=== PATIENT | female | born 1990 | race Caucasian/White ===

== ENCOUNTER 2017-01-15 14:18 | Inpatient (IN) | payer BC ==
[2017-01-15] MEDS ORDERED: Methylergonovine 0.2 MG/1 ML Amp IM PRN (15:29)
[2017-01-15] MEDS ORDERED: Carboprost Tromethamine 250 MCG/1 ML Amp IM PRN (15:29)
[2017-01-15] MEDS ORDERED: Nalbuphine 10 MG/1 ML Vial IVPUSH PRN (15:29)
[2017-01-15] MEDS ORDERED: Butorphanol 1 MG/ML SDV IVPUSH PRN (15:29)
[2017-01-15] MEDS ORDERED: Lidocaine 1% 50 ML MDV INJECT PRN (15:29)
[2017-01-15] MEDS ORDERED: Misoprostol 200 MCG Tab PO PRN (15:29)
[2017-01-15] MEDS ORDERED: Sodium Chloride 0.9% 10 ML Syringe FLUSH PRN (15:29)
[2017-01-15] MEDS ORDERED: Water For Irrigation,Sterile 1,000 ML Container IRR PRN (15:29)
[2017-01-15] MEDS ORDERED: Sodium Chloride 0.9% 2.5 ML Syringe FLUSH PRN (15:29)
[2017-01-15] MEDS ORDERED: Oxytocin/0.9 % Sodium Chloride 30 UNIT/500 ML BAG IV SCH ×2 (15:30→18:00)
[2017-01-15] MEDS: Lactated Ringers 1,000 ML IV SCH ×3 (17:05→21:51)
[2017-01-15] MEDS ORDERED: Misoprostol 25 MCG (1/4 of 100 MCG) Tab VAG PRN (17:54)
[2017-01-15] MEDS ORDERED: Terbutaline 1 MG/ML SDV SUBCUT PRN (17:54)
[2017-01-15] MEDS ORDERED: Misoprostol 25 MCG (1/4 of 100 MCG) Tab VAG SCH (18:00)
--- NOTE | 2017-01-15 20:42 | PCM.PREANE ---
Preanesthetic Assessment - Anesthesia/Transfusion/Family Hx Anesthesia History: Prior Anesthesia Without Reaction - Review of Systems General: No Symptoms Pulmonary: No Symptoms Cardiovascular: No Symptoms Gastrointestinal: No Symptoms Neurological: No Symptoms Other: Reports: None - Physical Assessment Height: 5 ft 4 in Weight: 77.111 kg ASA Class: 2 Mental Status: Alert & Oriented x3 Airway Class: Mallampati = 2 Dentition: Reports: Normal Dentition Thyro-Mental Finger Breadths: 3 Mouth Opening Finger Breadths: 3 ROM/Head Extension: Full Lungs: Clear to Auscultation, Normal Respiratory Effort Cardiovascular: Regular Rate, Regular Rhythm - Lab Values: Laboratory Last Values WBC 9.39 K/uL (4.0-11.0) 01/15/17 15:39 RBC 4.35 M/uL (4.30-5.90) 01/15/17 15:39 Hgb 11.2 g/dL (12.0-16.0) L 01/15/17 15:39 Hct 35.7 % (36.0-46.0) L 01/15/17 15:39 MCV 82.1 fL (80.0-98.0) 01/15/17 15:39 MCH 25.7 pg (27.0-32.0) L 01/15/17 15:39 MCHC 31.4 g/dL (31.0-37.0) 01/15/17 15:39 RDW Std Deviation 51.3 fl (28.0-62.0) 01/15/17 15:39 RDW Coeff of Magdy 17 % (11.0-15.0) H 01/15/17 15:39 Plt Count 188 K/uL (150-400) 01/15/17 15:39 MPV 10.60 fL (7.40-12.00) 01/15/17 15:39 Nucleated RBC % 0.0 /100WBC 01/15/17 15:39 Nucleated RBCs # 0 K/uL 01/15/17 15:39 Membrane Rupture POSITIVE 01/15/17 14:43 Blood Type O NEGATIVE 01/15/17 15:39 Antibody Screen NEGATIVE 01/15/17 15:39 - Allergies Allergies/Adverse Reactions: Allergies Allergy/AdvReac Type Severity Reaction Status Date / Time No Known Allergies Allergy Verified 03/20/14 11:15 - Acknowledgements Anesthesia Type Planned: Epidural Pt an Appropriate Candidate for the Planned Anesthesia: Yes Alternatives and Risks of Anesthesia Discussed w Pt/Guardian: Yes Pt/Guardian Understands and Agrees with Anesthesia Plan: Yes PreAnesthesia Questionnaire HEENT History: Reports: None Cardiovascular History: Reports: None Respiratory History: Reports: None Gastrointestinal History: Reports: GERD Genitourinary History: Reports: None 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 History: Reports: , Other (See Below) : 4 Para: 2 LMP (Approximate): Other OB/BYN History: ovarian cyst removed Musculoskeletal History: Reports: None Neurological History: Reports: None Psychiatric History: Reports: None Endocrine/Metabolic History: Reports: None Hematologic History: Reports: None Immunologic History: Reports: None Oncologic (Cancer) History: Reports: None Dermatologic History: Reports: None - Infectious Disease History Infectious Disease History: Reports: None - Past Surgical History Female Surgical History: Reports: D&C, Other (See Below) (Laparoscopy and cystectomy) - SUBSTANCE USE Smoking Status *Q: Former Smoker Tobacco Use Within Last Twelve Months: Cigarettes Second Hand Smoke Exposure: No Recreational Drug Use History: No - CURRENT (IN HOUSE) MEDS Current Meds: Current Medications Butorphanol Tartrate (Stadol) 1 mg IVPUSH Q1H PRN PRN Reason: Pain Carboprost Tromethamine (Hemabate Ds) 250 mcg IM ASDIRECTED PRN PRN Reason: Post Hemorrhage Lactated Ringer's (Ringers, Lactated) 1,000 mls @ 150 mls/hr IV ASDIRECTED RUDY Last Admin: 01/15/17 20:24 Dose: 999 mls/hr Oxytocin/Sodium Chloride (Oxytocin 30 Unit/500 Ml-Ns) 30 unit in 500 mls @ 999 mls/hr IV TITRATE RUDY Oxytocin/Sodium Chloride (Oxytocin 30 Unit/500 Ml-Ns) 30 unit in 500 mls @ 2 mls/hr IV TITRATE RUDY; 2 MUNITS/MIN PRN Reason: Protocol Last Titration: 01/15/17 19:09 Dose: 8 munits/min, 8 mls/hr Lidocaine HCl (Xylocaine 1%) 50 ml INJECT .ONCE PRN PRN Reason: Laceration repair Methylergonovine Maleate (Methergine) 0.2 mg IM ASDIRECTED PRN PRN Reason: Post Hemorrhage Misoprostol (Cytotec) 200 mcg PO .ONCE PRN PRN Reason: Post Hemorrhage Misoprostol (Cytotec) 25 mcg VAG .ONCE RUDY Misoprostol (Cytotec) 25 mcg VAG Q4H PRN PRN Reason: Cervical Ripening Nalbuphine HCl (Nubain) 10 mg IVPUSH Q1H PRN PRN Reason: Pain (severe 7-10) Sodium Chloride (Saline Flush) 10 ml FLUSH ASDIRECTED PRN PRN Reason: Keep Vein Open Sodium Chloride (Saline Flush) 2.5 ml FLUSH ASDIRECTED PRN PRN Reason: Keep Vein Open Sterile Water (Sterile Water For Irrigation) 1,000 ml IRR ASDIRECTED PRN PRN Reason: delivery Terbutaline Sulfate (Brethine) 0.25 mg SUBCUT ASDIRECTED PRN PRN Reason: Tacysystole
[2017-01-15] MEDS ORDERED: fentaNYL 100 MCG/2 ML SDV ONE (21:16)
[2017-01-15] MEDS ORDERED: Ropivacaine HCl/PF 100 ML ONE (21:16)
[2017-01-15] MEDS ORDERED: Bupivacaine 0.5% 10 ML SDV ONE (22:11)
[2017-01-16] MEDS ORDERED: Benzocaine/Menthol 20%-0.5% Spray 78 GM Cannister TOP PRN (00:45)
[2017-01-16] MEDS ORDERED: Methylergonovine 0.2 MG/1 ML Amp IM PRN (00:45)
[2017-01-16] MEDS ORDERED: Witch Hazel Medicated Pads 40/Jar TOP PRN (00:45)
[2017-01-16] MEDS ORDERED: Acetaminophen 500 MG Tab PO PRN (00:45)
[2017-01-16] MEDS ORDERED: Ibuprofen 400 MG Tab PO PRN (00:45)
[2017-01-16] MEDS ORDERED: Bisacodyl 10 MG Supp RECTAL PRN (00:45)
[2017-01-16] MEDS ORDERED: Lanolin 100% Cream 7 GM Tube TOP PRN (00:45)
[2017-01-16] MEDS ORDERED: oxyCODONE 5 MG Tab PO PRN (00:45)
[2017-01-16] MEDS: Ibuprofen 800 MG Tab PO PRN ×4 (02:30→22:08)
--- NOTE | 2017-01-16 06:57 | PCM48HPAN ---
Post Anesthesia Note - EVALUATION WITHIN 48HRS OF ANESTHETIC Vital Signs in Normal Range: Yes Patient Participated in Evaluation: Yes Respiratory Function Stable: Yes Airway Patent: Yes Cardiovascular Function Stable: Yes Hydration Status Stable: Yes Pain Control Satisfactory: Yes Nausea and Vomiting Control Satisfactory: Yes Mental Status Recovered: Yes
[2017-01-16] MEDS: Docusate Sodium 100 MG Cap PO PRN (08:21)
--- NOTE | 2017-01-16 08:33 | PCM.PNPP ---
<Shey Whitten - Last Filed: 01/16/17 08:29> - General Info Date of Service: 01/16/17 Functional Status: Reports: Pain Controlled, Tolerating Diet, Ambulating. Denies: Urinating (straight cath this morning) - Review of Systems General: Denies: Fever, Weakness, Fatigue Pulmonary: Denies: Shortness of Breath, Pleuritic Chest Pain, Cough Cardiovascular: Denies: Chest Pain, Palpitations, Dyspnea on Exertion Genitourinary: Denies: Dysuria - General Info Date of Service: 01/16/17 - Patient Data Vital Signs - Most Recent: Last Vital Signs Temp 36.8 C 01/16/17 03:30 Pulse 96 01/16/17 03:30 Resp 18 01/16/17 03:30 BP 129/70 01/16/17 03:30 Pulse Ox 100 01/16/17 03:30 Weight - Most Recent: 77.111 kg I&O - Last 24 Hours: Intake & Output 01/15/17 01/16/17 01/16/17 22:59 06:59 14:59 Intake Total 1000 1500 Balance 1000 1500 Lab Results - Last 24 Hours: Laboratory Results - last 24 hr 01/15/17 01/15/17 01/15/17 Range/Units 14:43 15:39 15:39 WBC 9.39 (4.0-11.0) K/uL RBC 4.35 (4.30-5.90) M/uL Hgb 11.2 L (12.0-16.0) g/dL Hct 35.7 L (36.0-46.0) % MCV 82.1 (80.0-98.0) fL MCH 25.7 L (27.0-32.0) pg MCHC 31.4 (31.0-37.0) g/dL RDW Std Deviation 51.3 (28.0-62.0) fl RDW Coeff of Magdy 17 H (11.0-15.0) % Plt Count 188 (150-400) K/uL MPV 10.60 (7.40-12.00) fL Nucleated RBC % 0.0 /100WBC Nucleated RBCs # 0 K/uL Membrane Rupture POSITIVE Blood Type O NEGATIVE Antibody Screen NEGATIVE Med Orders - Current: Current Medications Acetaminophen (Tylenol Extra Strength) 500 mg PO Q4H PRN PRN Reason: Pain Acetaminophen (Tylenol Extra Strength) 1,000 mg PO Q4H PRN PRN Reason: Pain Benzocaine/Menthol (Dermoplast Pain Relief 20%-0.5% [place]) 78 gm TOP ASDIRECTED PRN PRN Reason: Perineal Comfort Measure Last Admin: 01/16/17 02:29 Dose: 1 canister Bisacodyl (Dulcolax) 10 mg RECTAL .ONCE PRN PRN Reason: Constipation Docusate Sodium (Colace) 100 mg PO BID PRN PRN Reason: Constipation Last Admin: 01/16/17 08:21 Dose: 100 mg Emollient Ointment (Lansinoh Hpa) 0 gm TOP ASDIRECTED PRN PRN Reason: Sore Nipples Ibuprofen (Motrin) 400 mg PO Q4H PRN PRN Reason: Pain Ibuprofen (Motrin) 800 mg PO Q6H PRN PRN Reason: Pain Last Admin: 01/16/17 08:20 Dose: 800 mg Methylergonovine Maleate (Methergine) 0.2 mg IM .ONCE PRN PRN Reason: Excessive Vaginal Bleeding Oxycodone HCl (Oxycodone) 5 mg PO Q2H PRN PRN Reason: Pain Witch Estela (Tucks) 1 pad TOP ASDIRECTED PRN PRN Reason: comfort care Last Admin: 01/16/17 02:30 Dose: 1 tub Discontinued Medications Bupivacaine HCl (Sensorcaine-Mpf 0.5%) Confirm Administered Dose 10 ml .ROUTE .STK-MED ONE Stop: 01/15/17 22:12 Butorphanol Tartrate (Stadol) 1 mg IVPUSH Q1H PRN PRN Reason: Pain Carboprost Tromethamine (Hemabate Ds) 250 mcg IM ASDIRECTED PRN PRN Reason: Post Hemorrhage Fentanyl (Sublimaze) Confirm Administered Dose 100 mcg .ROUTE .STK-MED ONE Stop: 01/15/17 21:17 Lactated Ringer's (Ringers, Lactated) 1,000 mls @ 150 mls/hr IV ASDIRECTED RUDY Last Admin: 01/15/17 21:51 Dose: 999 mls/hr Oxytocin/Sodium Chloride (Oxytocin 30 Unit/500 Ml-Ns) 30 unit in 500 mls @ 999 mls/hr IV TITRATE RUDY Oxytocin/Sodium Chloride (Oxytocin 30 Unit/500 Ml-Ns) 30 unit in 500 mls @ 2 mls/hr IV TITRATE RUDY; 2 MUNITS/MIN PRN Reason: Protocol Last Titration: 01/15/17 23:46 Dose: 999 mls/hr Ropivacaine (Naropin 0.2%) Confirm Administered Dose 100 mls @ as directed .ROUTE .[facility]-MED ONE Stop: 01/15/17 21:17 Lidocaine HCl (Xylocaine 1%) 50 ml INJECT .ONCE PRN PRN Reason: Laceration repair Methylergonovine Maleate (Methergine) 0.2 mg IM ASDIRECTED PRN PRN Reason: Post Hemorrhage Misoprostol (Cytotec) 200 mcg PO .ONCE PRN PRN Reason: Post Hemorrhage Misoprostol (Cytotec) 25 mcg VAG .ONCE RUDY Misoprostol (Cytotec) 25 mcg VAG Q4H PRN PRN Reason: Cervical Ripening Nalbuphine HCl (Nubain) 10 mg IVPUSH Q1H PRN PRN Reason: Pain (severe 7-10) Sodium Chloride (Saline Flush) 10 ml FLUSH ASDIRECTED PRN PRN Reason: Keep Vein Open Sodium Chloride (Saline Flush) 2.5 ml FLUSH ASDIRECTED PRN PRN Reason: Keep Vein Open Sterile Water (Sterile Water For Irrigation) 1,000 ml IRR ASDIRECTED PRN PRN Reason: delivery Last Admin: 01/15/17 23:40 Dose: 1,000 ml Terbutaline Sulfate (Brethine) 0.25 mg SUBCUT ASDIRECTED PRN PRN Reason: Tacysystole - Interaction Infant Disposition, : [place] in Room with Family Interaction: Holding Infant Feeding: Bottle Fed Infant Support Person: - Recovery Exam Fundal Tone: Firm Fundal Level: 3 Fingerbreadths Above Umbilicus Fundal Placement: Midline Lochia Amount: Scant, Small Lochia Color: Rubra/Red Perineum Description: Edematous Episiotomy/Laceration: Approximated Bladder Status: Voiding Urinary Elimination: Straight Catheterization - Exam General: Alert, Oriented Lungs: Clear to Auscultation, Normal Respiratory Effort Cardiovascular: Regular Rate, Regular Rhythm GI/Abdominal Exam: Normal Bowel Sounds, Soft, Non-Tender, No Organomegaly, No Abnormal Bruit, No Mass, Pelvis Stable Extremities: Normal Inspection, Normal Range of Motion, Non-Tender, Normal Capillary Refill, Pedal Edema (trace) - Problem List & Annotations (1) Vaginal delivery SNOMED Code(s): 331226956 Code(s): O80 - ENCOUNTER FOR FULL-TERM UNCOMPLICATED DELIVERY Status: Acute Current Visit: Yes - Problem List Review Problem List Initiated/Reviewed/Updated: Yes - Assessment Assessment:: PPD #1 from . Minimal pain and lochia. Patient was unable to void this morning and was straight catheterized. If unable to void, will reinsert lisa. Anticiapte discharge home tomorrow. - Plan Plan:: Continue routine post- cares. Encourage patient to shower and ambulate halls today. <Malinda Flores - Last Filed: 01/16/17 10:01> - Patient Data Vital Signs - Most Recent: Last Vital Signs Temp 36.8 C 01/16/17 03:30 Pulse 96 01/16/17 03:30 Resp 18 01/16/17 03:30 BP 129/70 01/16/17 03:30 Pulse Ox 100 01/16/17 03:30 I&O - Last 24 Hours: Intake & Output 01/15/17 01/16/17 01/16/17 22:59 06:59 14:59 Intake Total 1000 1500 Balance 1000 1500 Lab Results - Last 24 Hours: Laboratory Results - last 24 hr 01/15/17 01/15/17 01/15/17 Range/Units 14:43 15:39 15:39 WBC 9.39 (4.0-11.0) K/uL RBC 4.35 (4.30-5.90) M/uL Hgb 11.2 L (12.0-16.0) g/dL Hct 35.7 L (36.0-46.0) % MCV 82.1 (80.0-98.0) fL MCH 25.7 L (27.0-32.0) pg MCHC 31.4 (31.0-37.0) g/dL RDW Std Deviation 51.3 (28.0-62.0) fl RDW Coeff of Magdy 17 H (11.0-15.0) % Plt Count 188 (150-400) K/uL MPV 10.60 (7.40-12.00) fL Nucleated RBC % 0.0 /100WBC Nucleated RBCs # 0 K/uL Membrane Rupture POSITIVE Blood Type O NEGATIVE Antibody Screen NEGATIVE Med Orders - Current: Current Medications Acetaminophen (Tylenol Extra Strength) 500 mg PO Q4H PRN PRN Reason: Pain Acetaminophen (Tylenol Extra Strength) 1,000 mg PO Q4H PRN PRN Reason: Pain Benzocaine/Menthol (Dermoplast Pain Relief 20%-0.5% [place]) 78 gm TOP ASDIRECTED PRN PRN Reason: Perineal Comfort Measure Last Admin: 01/16/17 02:29 Dose: 1 canister Bisacodyl (Dulcolax) 10 mg RECTAL .ONCE PRN PRN Reason: Constipation Docusate Sodium (Colace) 100 mg PO BID PRN PRN Reason: Constipation Last Admin: 01/16/17 08:21 Dose: 100 mg Emollient Ointment (Lansinoh Hpa) 0 gm TOP ASDIRECTED PRN PRN Reason: Sore Nipples Ibuprofen (Motrin) 400 mg PO Q4H PRN PRN Reason: Pain Ibuprofen (Motrin) 800 mg PO Q6H PRN PRN Reason: Pain Last Admin: 01/16/17 08:20 Dose: 800 mg Methylergonovine Maleate (Methergine) 0.2 mg IM .ONCE PRN PRN Reason: Excessive Vaginal Bleeding Oxycodone HCl (Oxycodone) 5 mg PO Q2H PRN PRN Reason: Pain Witch Estela (Tucks) 1 pad TOP ASDIRECTED PRN PRN Reason: comfort care Last Admin: 01/16/17 02:30 Dose: 1 tub Discontinued Medications Bupivacaine HCl (Sensorcaine-Mpf 0.5%) Confirm Administered Dose 10 ml .ROUTE .STK-MED ONE Stop: 01/15/17 22:12 Butorphanol Tartrate (Stadol) 1 mg IVPUSH Q1H PRN PRN Reason: Pain Carboprost Tromethamine (Hemabate Ds) 250 mcg IM ASDIRECTED PRN PRN Reason: Post Hemorrhage Fentanyl (Sublimaze) Confirm Administered Dose 100 mcg .ROUTE .STK-MED ONE Stop: 01/15/17 21:17 Lactated Ringer's (Ringers, Lactated) 1,000 mls @ 150 mls/hr IV ASDIRECTED RUDY Last Admin: 01/15/17 21:51 Dose: 999 mls/hr Oxytocin/Sodium Chloride (Oxytocin 30 Unit/500 Ml-Ns) 30 unit in 500 mls @ 999 mls/hr IV TITRATE RUDY Oxytocin/Sodium Chloride (Oxytocin 30 Unit/500 Ml-Ns) 30 unit in 500 mls @ 2 mls/hr IV TITRATE RUDY; 2 MUNITS/MIN PRN Reason: Protocol Last Titration: 01/15/17 23:46 Dose: 999 mls/hr Ropivacaine (Naropin 0.2%) Confirm Administered Dose 100 mls @ as directed .ROUTE .[facility]-MED ONE Stop: 01/15/17 21:17 Lidocaine HCl (Xylocaine 1%) 50 ml INJECT .ONCE PRN PRN Reason: Laceration repair Methylergonovine Maleate (Methergine) 0.2 mg IM ASDIRECTED PRN PRN Reason: Post Hemorrhage Misoprostol (Cytotec) 200 mcg PO .ONCE PRN PRN Reason: Post Hemorrhage Misoprostol (Cytotec) 25 mcg VAG .ONCE RUDY Misoprostol (Cytotec) 25 mcg VAG Q4H PRN PRN Reason: Cervical Ripening Nalbuphine HCl (Nubain) 10 mg IVPUSH Q1H PRN PRN Reason: Pain (severe 7-10) Sodium Chloride (Saline Flush) 10 ml FLUSH ASDIRECTED PRN PRN Reason: Keep Vein Open Sodium Chloride (Saline Flush) 2.5 ml FLUSH ASDIRECTED PRN PRN Reason: Keep Vein Open Sterile Water (Sterile Water For Irrigation) 1,000 ml IRR ASDIRECTED PRN PRN Reason: delivery Last Admin: 01/15/17 23:40 Dose: 1,000 ml Terbutaline Sulfate (Brethine) 0.25 mg SUBCUT ASDIRECTED PRN PRN Reason: Tacysystole - My Orders Last 24 Hours: My Active Orders 01/15/17 14:43 Non Stress Test [RC] PER UNIT ROUTINE Up ad Veronica [RC] ASDIRECTED Vaginal Exam [RC] Click to Edit Vital Signs [RC] PER UNIT ROUTINE - Plan Plan:: Patient seen and examined--agree with above.
--- NOTE | 2017-01-16 10:52 | OR ---
SURGEON: Vinita Subramanian M.D. DATE OF PROCEDURE: 01/15/2017 PREOPERATIVE DIAGNOSIS: 39 and 3/7 week intrauterine , rupture of membranes with induction and delivery. POSTOPERATIVE DIAGNOSIS: 39 and 3/7 week intrauterine , rupture of membranes with induction and delivery. ANESTHESIA: Epidural. ESTIMATED BLOOD LOSS: Less than 200 mL. FINDINGS: Liveborn male, scores 9 and 9, weighing 3590 g. Placenta spontaneous, Schultze intact with 3 vessels, with a markedly short cord. COMPLICATIONS: None known. DISPOSITION: Stable to recovery. BRIEF HISTORY: This is a 26-year-old female. She is -0-1-2. She presents at 39 and 3/7 weeks' gestation. Spontaneous rupture of membranes at approximately 1100 hours. She had category 1 heart tones. She presented to Labor and Delivery. She was initially 3 cm dilated and fairly thick. Over a 2-hour time period, she had minimal change, although she was having regular contractions. Therefore, Pitocin augmentation was initiated after consent of the patient. She did receive an epidural for pain control. She continued to have category 1 heart tones throughout labor. She progressed to complete. DESCRIPTION OF PROCEDURE: With the patient in dorsolithotomy position, the patient pushed over 20 minutes time period to a 5+ station, at which time the head was delivered spontaneously and atraumatically over the perineum with support, with subsequent delivery of the infant's shoulders and body without any difficulty. The infant was bulb suctioned by nose and mouth, and the cord was noted to be quite short, it was doubly clamped and cut, and the infant was handed to the mother in the presence of the nurse attending delivery. The was a liveborn male, scores 9 and 9, weighing 3590 g. Cord blood was collected for cord ABGs, as well as routine cord blood sampling. Pitocin was initiated after delivery of the infant to assist with delivery of the placenta, which was delivered spontaneously, Schultze intact with 3 vessels. Upon inspection of the pelvis and perineum, there were no periurethral, vaginal sidewall, cervical, or rectal lacerations. There was a small second-degree perineal laceration that was repaired using a running lock suture of 2-0 Caprosyn for the vaginal mucosa, a deep running suture of the same for the perineum and a subcuticular suture of the same for the skin. Final sponge, needle, and instrument counts were correct. There were no known complications. Mother and are in LDRP, in good condition. CK ROSA /[id number]
[2017-01-16] MEDS: Acetaminophen 500 MG Tab PO PRN (12:50)
[2017-01-17] MEDS: Acetaminophen 500 MG Tab PO PRN (03:04)
--- NOTE | 2017-01-17 09:04 | PCM.PNPP ---
- General Info Date of Service: 01/17/17 Functional Status: Reports: Pain Controlled, Tolerating Diet, Ambulating, Urinating - Review of Systems General: Denies: Fever, Weakness Pulmonary: Denies: Shortness of Breath Cardiovascular: Denies: Chest Pain, Palpitations, Lightheadedness Gastrointestinal: Denies: Abdominal Pain, Nausea, Vomiting Genitourinary: Denies: Flank Pain Psychiatric: Reports: No Symptoms - General Info Date of Service: 01/17/17 - Patient Data Vital Signs - Most Recent: Last Vital Signs Temp 36.5 C 01/17/17 05:51 Pulse 73 01/17/17 05:51 Resp 16 01/17/17 05:51 BP 117/73 01/17/17 05:51 Pulse Ox 97 01/17/17 05:51 Weight - Most Recent: 77.111 kg I&O - Last 24 Hours: Intake & Output 01/16/17 01/17/17 01/17/17 22:59 06:59 14:59 Output Total 1000 850 Balance -1000 -850 Lab Results - Last 24 Hours: Laboratory Results - last 24 hr 01/16/17 Range/Units 17:15 Hgb 10.2 L (12.0-16.0) g/dL Hct 33.3 L (36.0-46.0) % Med Orders - Current: Current Medications Acetaminophen (Tylenol Extra Strength) 500 mg PO Q4H PRN PRN Reason: Pain Acetaminophen (Tylenol Extra Strength) 1,000 mg PO Q4H PRN PRN Reason: Pain Last Admin: 01/17/17 03:04 Dose: 1,000 mg Benzocaine/Menthol (Dermoplast Pain Relief 20%-0.5% [place]) 78 gm TOP ASDIRECTED PRN PRN Reason: Perineal Comfort Measure Last Admin: 01/16/17 02:29 Dose: 1 canister Bisacodyl (Dulcolax) 10 mg RECTAL .ONCE PRN PRN Reason: Constipation Docusate Sodium (Colace) 100 mg PO BID PRN PRN Reason: Constipation Last Admin: 01/16/17 08:21 Dose: 100 mg Emollient Ointment (Lansinoh Hpa) 0 gm TOP ASDIRECTED PRN PRN Reason: Sore Nipples Ibuprofen (Motrin) 400 mg PO Q4H PRN PRN Reason: Pain Ibuprofen (Motrin) 800 mg PO Q6H PRN PRN Reason: Pain Last Admin: 01/16/17 22:08 Dose: 800 mg Methylergonovine Maleate (Methergine) 0.2 mg IM .ONCE PRN PRN Reason: Excessive Vaginal Bleeding Oxycodone HCl (Oxycodone) 5 mg PO Q2H PRN PRN Reason: Pain Witch Estela (Tucks) 1 pad TOP ASDIRECTED PRN PRN Reason: comfort care Last Admin: 01/16/17 02:30 Dose: 1 tub Discontinued Medications Bupivacaine HCl (Sensorcaine-Mpf 0.5%) Confirm Administered Dose 10 ml .ROUTE .STK-MED ONE Stop: 01/15/17 22:12 Last Admin: 01/16/17 16:34 Dose: Not Given Butorphanol Tartrate (Stadol) 1 mg IVPUSH Q1H PRN PRN Reason: Pain Carboprost Tromethamine (Hemabate Ds) 250 mcg IM ASDIRECTED PRN PRN Reason: Post Hemorrhage Fentanyl (Sublimaze) Confirm Administered Dose 100 mcg .ROUTE .[employer]MED ONE Stop: 01/15/17 21:17 Last Admin: 01/16/17 16:27 Dose: Not Given Lactated Ringer's (Ringers, Lactated) 1,000 mls @ 150 mls/hr IV ASDIRECTED RUDY Last Admin: 01/15/17 21:51 Dose: 999 mls/hr Oxytocin/Sodium Chloride (Oxytocin 30 Unit/500 Ml-Ns) 30 unit in 500 mls @ 999 mls/hr IV TITRATE RUDY Oxytocin/Sodium Chloride (Oxytocin 30 Unit/500 Ml-Ns) 30 unit in 500 mls @ 2 mls/hr IV TITRATE RUDY; 2 MUNITS/MIN PRN Reason: Protocol Last Titration: 01/15/17 23:46 Dose: 999 mls/hr Ropivacaine (Naropin 0.2%) Confirm Administered Dose 100 mls @ as directed .ROUTE .STK-MED ONE Stop: 01/15/17 21:17 Last Admin: 01/16/17 16:26 Dose: Not Given Lidocaine HCl (Xylocaine 1%) 50 ml INJECT .ONCE PRN PRN Reason: Laceration repair Methylergonovine Maleate (Methergine) 0.2 mg IM ASDIRECTED PRN PRN Reason: Post Hemorrhage Misoprostol (Cytotec) 200 mcg PO .ONCE PRN PRN Reason: Post Hemorrhage Misoprostol (Cytotec) 25 mcg VAG .ONCE RUDY Misoprostol (Cytotec) 25 mcg VAG Q4H PRN PRN Reason: Cervical Ripening Nalbuphine HCl (Nubain) 10 mg IVPUSH Q1H PRN PRN Reason: Pain (severe 7-10) Sodium Chloride (Saline Flush) 10 ml FLUSH ASDIRECTED PRN PRN Reason: Keep Vein Open Sodium Chloride (Saline Flush) 2.5 ml FLUSH ASDIRECTED PRN PRN Reason: Keep Vein Open Sterile Water (Sterile Water For Irrigation) 1,000 ml IRR ASDIRECTED PRN PRN Reason: delivery Last Admin: 01/15/17 23:40 Dose: 1,000 ml Terbutaline Sulfate (Brethine) 0.25 mg SUBCUT ASDIRECTED PRN PRN Reason: Tacysystole - Interaction Infant Disposition, : in Room with Family Interaction: Holding Feeding: Bottle Fed Support Person: - Recovery Exam Fundal Tone: Firm Fundal Level: At Umbilicus Fundal Placement: Midline Lochia Amount: Scant Lochia Color: Rubra/Red Perineum Description: Other (see below) Other Perinuem Description: 2nd degree laceration Episiotomy/Laceration: Approximated Bladder Status: Voiding Urinary Elimination: Voided - Exam General: Alert, Oriented Lungs: Normal Respiratory Effort Cardiovascular: Regular Rate, Regular Rhythm GI/Abdominal Exam: Soft, Non-Tender Extremities: Non-Tender, Pedal Edema (trace) Psy/Mental Status: Alert, Normal Affect - Problem List Review Problem List Initiated/Reviewed/Updated: Yes - My Orders Last 24 Hours: My Active Orders 01/17/17 09:02 Ready for Discharge [RC] PER UNIT ROUTINE - Assessment Assessment:: PPD #2 from . - Plan Plan:: patient doing well overall, able to void. VS stable. Lochia minimal. Ready to go home. Discharge instructions reviewed. Follow up at [facility] 6 weeks. Infection and bleeding warnings reviewed.
[2017-01-17] MEDS: Docusate Sodium 100 MG Cap PO PRN (09:15)
== END 2017-01-17 12:07 | disposition home or self-care (01) | DRG 560 ==
LOC: MW.OBCHECK 14:18 → MW.OB 14:25 → UNDOADMOB 15:31 → MW.OB 23:45 → UNDOADMOB 23:45 → MW.OB 23:45 → MW.OBCHECK 01-16 00:10 → MW.OB 01-16 00:10 → MW.OBCHECK 01-16 00:14 → MW.OB 01-16 00:14 → OBSVTOIN 01-16 00:45 → INTOOBSV 01-16 00:45 → MW.OB 01-16 03:00 → UNDODISIN 01-17 12:07
PROVIDERS: ADMIT Obstetrics & Gynecology; ATTEND Obstetrics & Gynecology
PROC: 10E0XZZ Delivery of Products of Conception, External Approach (ICD-10-PCS; principal; 2017-01-16)
PROC: 0KQM0ZZ Repair Perineum Muscle, Open Approach (ICD-10-PCS; 2017-01-16)
PROC: 3E0P3VZ Introduction of Hormone into Female Reproductive, Percutaneous Approach (ICD-10-PCS; 2017-01-16)
PROC: 00HU33Z Insertion of Infusion Device into Spinal Canal, Percutaneous Approach (ICD-10-PCS; 2017-01-16)
PROC: 3E0R3BZ Introduction of Anesthetic Agent into Spinal Canal, Percutaneous Approach (ICD-10-PCS; 2017-01-16)
DX: O42.02 Full-term premature rupture of membranes, onset of labor within 24 hours of rupture (principal); O70.1 Second degree perineal laceration during delivery; O69.3XX0 Labor and delivery complicated by short cord, not applicable or unspecified; R33.9 Retention of urine, unspecified; Z3A.39 39 weeks gestation of pregnancy; Z37.0 Single live birth
CPT/HCPCS: 01967; 01996; 36415; 51701; 51702; 59025; 59409; 84112; 85014; 85018; 85027; 86850; 86900; 86901; A9270-GY; J2590; J2795; J3010; J7120

== ENCOUNTER 2023-05-21 06:36 | Day surgery (SDC) | payer BC ==
[~2023-05-21 06:36] MED LIST: Sodium Chloride 0.9% 10 ML Syringe FLUSH PRN; Sodium Chloride 0.9% 2.5 ML Syringe FLUSH PRN; Sodium Chloride 0.9% 20 ML SDV IV PRN
[2023-05-21] MEDS: Scopalamine 1mg/3day Transdermal Patch TOP ONE (07:08)
[2023-05-21] MEDS ORDERED: fentaNYL 50 MCG/ML SDV IVPUSH PRN (07:13)
[2023-05-21] MEDS ORDERED: Albuterol 0.083% 2.5 MG/3 ML Neb Soln NEB PRN (07:13)
[2023-05-21] MEDS ORDERED: Ondansetron 4 MG/2 ML SDV IVPUSH PRN (07:13)
[2023-05-21] MEDS ORDERED: Metoclopramide 10 MG/2 ML SDV IVPUSH PRN (07:13)
[2023-05-21] MEDS ORDERED: Morphine 2 MG/ML SYRINGE IVPUSH PRN (07:13)
[2023-05-21] MEDS ORDERED: HYDROmorphone 1 MG/ML Syringe IVPUSH PRN (07:13)
[2023-05-21] MEDS ORDERED: Naloxone 0.4 MG/ML SDV IVPUSH PRN (07:13)
[2023-05-21] MEDS ORDERED: droPERidol 5 MG/2 ML SDV IVPUSH PRN (07:13)
[2023-05-21] MEDS ORDERED: propofoL 50 ML ONE (07:27)
[2023-05-21] MEDS ORDERED: fentaNYL 100 MCG/2 ML SDV ONE ×2 (07:35→08:31)
[2023-05-21] MEDS ORDERED: dexmedeTOMIDine HCl 200 MCG/2 ML SDV ONE (07:35)
[2023-05-21] MEDS ORDERED: Water For Injection, Sterile 20 ML ONE (07:35)
[2023-05-21] MEDS ORDERED: Magnesium Sulfate (4.06 MEQ/ML) 5 GM/10 ML SDV ONE (08:01)
[2023-05-21] MEDS ORDERED: Dexamethasone 4 MG/ML 5 ML MDV ONE (08:05)
[2023-05-21] MEDS ORDERED: Ondansetron 4 MG/2 ML SDV ONE (08:05)
[2023-05-21] MEDS ORDERED: Propofol 200 MG/20 ML SDV ONE ×2 (08:10→08:22)
[2023-05-21] MEDS ORDERED: Ketorolac 30 MG/ML SDV ONE (08:18)
[2023-05-21] MEDS: Lactated Ringers 1,000 ML IV SCH (09:06)
== END 2023-05-21 09:43 | disposition home or self-care (01) ==
LOC: MW.SDS 06:36
PROVIDERS: ATTEND Obstetrics & Gynecology
DX: N93.9 Abnormal uterine and vaginal bleeding, unspecified (principal); N92.0 Excessive and frequent menstruation with regular cycle; F17.210 Nicotine dependence, cigarettes, uncomplicated; Z98.890 Other specified postprocedural states
CPT/HCPCS: 58563; A9270; J0131; J1100; J1885; J2405; J2704; J3010; J3475; J7120; J3490